=== PATIENT | female | born 1970 | race Caucasian/White ===

== ENCOUNTER 2017-03-15 16:31 | Emergency (ER) | payer OTHER ==
[~2017-03-15] VITALS: Ht 157.5 cm; Wt 63.4 kg
[~2017-03-15 16:31] MED LIST: NORVASC5 MG PO
[2017-03-15 16:54] VITALS: BP 140/104
== END 2017-03-15 19:27 | disposition home or self-care (01) ==
LOC: EME 16:31
PROC: 0RSKXZZ Reposition Left Shoulder Joint, External Approach (ICD-10-PCS; principal; 2017-03-15)
DX: M24.412 Recurrent dislocation, left shoulder (principal); X50.1XXA Overexertion from prolonged static or awkward postures, initial encounter; I10 Essential (primary) hypertension; F17.200 Nicotine dependence, unspecified, uncomplicated
CPT/HCPCS: 73030; 99281; 99283